=== PATIENT | female | born 1980 ===

== ENCOUNTER 2018-05-02 08:19 | Inpatient (IN) | payer OTHER ==
[2018-04-27 10:49] VITALS: BMI 31.1
[2018-05-02] MEDS ORDERED: Midazolam 2 MG/2 ML VIAL ONE (09:01)
[2018-05-02] MEDS ORDERED: Propofol 10 mg/ml Inj (20 ML) ONE (09:01)
[2018-05-02] MEDS ORDERED: ceFOXitin IV 1 gm/100 ml in NS 1 GM/100 ML BAG ONE (10:38)
[2018-05-02] MEDS: Bupivacaine 0.25% 20 ML INJ IJ ONE ×2 (11:00→13:12)
[2018-05-02] MEDS ORDERED: Methylene Blue 10 mg/mL(10ml) IV ONE (13:02)
--- NOTE | 2018-05-02 13:22 | PCM.SURG1 ---
Surgeon's Initial Post Op Note - Surgeon's Notes Surgeon: Dr. Pedraza Mobile Nurse: Dr. Moffett Type of Anesthesia: General Endo Anesthesia Administered By: Dr. Gonzales Pre-Operative Diagnosis: 37 yo with Fibroid uterus, menorrhagia, Irregular menstrual cycle , chronic pelvic pain Operative Findings: AV uterus 18-20 wks gestation , multiple adhesions, Endometriosis , multiple fibroids , MULTIPLE ENDOMETRIOSIS LESIONS ON THE BOWELS Post-Operative Diagnosis: Same as above Operation Performed: Attempted Laparoscopy Hysterectomy, Laparotomy Supracervic al hysterectomy , RSO, Left Salpingectomy , Cystoscopy Specimen/Specimens Removed: Uterus, Right tube and ovary, Left Tube Estimated Blood Loss: EBL {In ML}: 400 Blood Products Given: N/A Drains Used: No Drains Post-Op Condition: Good Date of Surgery/Procedure: 05/02/18 Time of Surgery/Procedure: 13:23
[2018-05-02] MEDS ORDERED: Lactated Ringer's 1,000 ML IV SCH (13:30)
[2018-05-02] MEDS ORDERED: cefOXitin IV 2 gm in Dextrose 2 GM/50 ML BAG IVPB SCH (13:30)
[2018-05-02] MEDS: HYDROmorphone 0.5 mg/0.5 ml ISec IVP PRN ×4 (13:55→21:49)
[2018-05-02] MEDS: Oxycodone/Acetaminophen 5/325 mg Tab PO PRN (18:41)
[2018-05-02] MEDS: cefOXitin IV 2 gm in Dextrose 2 GM/50 ML BAG IVPB SCH (19:44)
[2018-05-03] MEDS: Oxycodone/Acetaminophen 5/325 mg Tab PO PRN ×4 (02:22→21:28)
[2018-05-03] MEDS: cefOXitin IV 2 gm in Dextrose 2 GM/50 ML BAG IVPB SCH ×2 (03:18→10:11)
[2018-05-03 09:12] LABS: MEAN CELL VOLUME 81.7 fL (81.0-99.0); MEAN CORPUSCULAR HEMOGLOBIN 27.5 pg (27.0-31.0); MEAN CORPUSCULAR HGB CONC 33.7 g/dL (33.0-37.0); RBC 3.99 Mil/uL (3.80-5.20); RED CELL DISTRIBUTION WIDTH 14.3 % (11.5-14.5); WHITE BLOOD COUNT 10.4 K/uL (4.8-10.8)
[2018-05-03 09:25] LABS: ALB/GLOB RATIO 1.6 (1.0-2.1); ALBUMIN 3.6 g/dL (3.5-5.0); AST/SGOT 27 U/L (14-36); BLOOD UREA NITROGEN 7 mg/dL (7-17); CALCIUM 8.4 mg/dl (8.6-10.4); GFR NON-AFRICAN AMERICAN > 60
[2018-05-03 09:27] LABS: ALT/SGPT < 6 U/L (9-52)
[2018-05-04] MEDS: Oxycodone/Acetaminophen 5/325 mg Tab PO PRN ×3 (02:58→14:36)
--- NOTE | 2018-05-04 18:21 | CP.PCM.PN ---
Subjective - Date & Time of Evaluation Date of Evaluation: 05/03/18 Time of Evaluation: 18:19 - Subjective Subjective: pain moderate control, not ambulating well yet, not passing gas, tolerating diet, voiding on her own Objective - Vital Signs/Intake and Output Vital Signs (last 24 hours): Temp Pulse Resp BP Pulse Ox 97.1 F L 93 H 18 98/65 L 97 05/04/18 16:00 05/04/18 16:00 05/04/18 16:00 05/04/18 16:00 05/04/18 16:00 Intake and Output: 05/04/18 05/04/18 06:59 18:59 Intake Total 850 Output Total 0 Balance 850 - Medications Medications: Current Medications Docusate Sodium (Colace) 100 mg PO BID [facility] Last Admin: 05/04/18 09:41 Dose: 100 mg Hydromorphone HCl (Dilaudid) 0.5 mg IVP Q10M PRN PRN Reason: Pain, moderate (4-7) Last Admin: 05/02/18 21:49 Dose: 0.5 mg Lactated Ringer's (Lactated Ringer's) 1,000 mls @ 125 mls/hr IV .Q8H [facility] Last Admin: 05/02/18 23:00 Dose: 125 mls/hr Ondansetron HCl (Zofran Inj) 4 mg IVP ONCE PRN PRN Reason: Nausea/Vomiting Oxycodone/Acetaminophen (Percocet 5/325 Mg Tab) 1 tab PO Q6 PRN PRN Reason: Pain, moderate (4-7) Stop: 05/05/18 13:25 Last Admin: 05/04/18 14:36 Dose: 1 tab Oxycodone/Acetaminophen (Percocet 5/325 Mg Tab) 2 tab PO Q6H PRN PRN Reason: Pain, severe (8-10) Stop: 05/06/18 20:45 Last Admin: 05/04/18 02:58 Dose: 2 tab Zolpidem Tartrate (Ambien) 5 mg PO HS PRN PRN Reason: Insomnia - Labs Labs: 05/03/18 09:05 05/03/18 09:05 - Constitutional Appears: Well, No Acute Distress - Head Exam Head Exam: NORMAL INSPECTION, NORMOCEPHALIC - Neck Exam Neck Exam: Full ROM - Respiratory Exam Respiratory Exam: NORMAL BREATHING PATTERN - Cardiovascular Exam Cardiovascular Exam: REGULAR RHYTHM - GI/Abdominal Exam GI & Abdominal Exam: Soft, Hypoactive Bowel Sounds Additional comments: appropriately tender, dressing intact and dry Assessment and Plan - Assessment and Plan (Free Text) Plan: POD#1 meeting postop milestones but still need better pain control ambulate more, need to progress in bowel movements H&H appropriate, labs wnl
--- NOTE | 2018-05-04 18:23 | CP.PCM.PN ---
Subjective - Date & Time of Evaluation Date of Evaluation: 05/04/18 Time of Evaluation: 18:21 - Subjective Subjective: doing better but still no bowel movement or passing gas, no n/v, tolerating diet, has ambulated Objective - Vital Signs/Intake and Output Vital Signs (last 24 hours): Temp Pulse Resp BP Pulse Ox 97.1 F L 93 H 18 98/65 L 97 05/04/18 16:00 05/04/18 16:00 05/04/18 16:00 05/04/18 16:00 05/04/18 16:00 Intake and Output: 05/04/18 05/04/18 06:59 18:59 Intake Total 850 Output Total 0 Balance 850 - Medications Medications: Current Medications Docusate Sodium (Colace) 100 mg PO BID [facility] Last Admin: 05/04/18 09:41 Dose: 100 mg Hydromorphone HCl (Dilaudid) 0.5 mg IVP Q10M PRN PRN Reason: Pain, moderate (4-7) Last Admin: 05/02/18 21:49 Dose: 0.5 mg Lactated Ringer's (Lactated Ringer's) 1,000 mls @ 125 mls/hr IV .Q8H [facility] Last Admin: 05/02/18 23:00 Dose: 125 mls/hr Ondansetron HCl (Zofran Inj) 4 mg IVP ONCE PRN PRN Reason: Nausea/Vomiting Oxycodone/Acetaminophen (Percocet 5/325 Mg Tab) 1 tab PO Q6 PRN PRN Reason: Pain, moderate (4-7) Stop: 05/05/18 13:25 Last Admin: 05/04/18 14:36 Dose: 1 tab Oxycodone/Acetaminophen (Percocet 5/325 Mg Tab) 2 tab PO Q6H PRN PRN Reason: Pain, severe (8-10) Stop: 05/06/18 20:45 Last Admin: 05/04/18 02:58 Dose: 2 tab Zolpidem Tartrate (Ambien) 5 mg PO HS PRN PRN Reason: Insomnia - Labs Labs: 05/03/18 09:05 05/03/18 09:05 - Constitutional Appears: No Acute Distress - Head Exam Head Exam: NORMAL INSPECTION, NORMOCEPHALIC - Neck Exam Neck Exam: Normal Inspection - Respiratory Exam Respiratory Exam: NORMAL BREATHING PATTERN - Cardiovascular Exam Cardiovascular Exam: REGULAR RHYTHM - GI/Abdominal Exam GI & Abdominal Exam: Soft, Normal Bowel Sounds Additional comments: appropraitely tender, incision c/d/i Assessment and Plan - Assessment and Plan (Free Text) Plan: POD#2 improved but still need bowel movement ambulate more continue to work on pain control
[2018-05-04] MEDS ORDERED: oxyCODONE 5 mg Immediate Release Tab PO PRN (18:26)
[2018-05-04] MEDS ORDERED: oxyCODONE 10 mg Immediate Release Tab PO PRN (18:27)
[2018-05-04] MEDS: Simethicone 80 mg Chewtab PO SCH (23:12)
[2018-05-05 00:44] VITALS: RESP 20
[2018-05-05] MEDS: Simethicone 80 mg Chewtab PO SCH ×2 (06:26→12:49)
[2018-05-05 08:22] VITALS: BP 102/69; PULSE 85; TEMP 97.9; O2SAT 97
[2018-05-05] MEDS ORDERED: Influenza Vaccine 60 mcg/0.5 mL SYR (4YR UP) IM ONE (09:04)
--- NOTE | 2018-05-14 10:39 | CP.PCM.DIS ---
Provider - Provider Date of Admission: 05/02/18 13:32 Attending physician: Nery Pedraza MD Time Spent in preparation of Discharge (in minutes): 30 Diagnosis - Discharge Diagnosis (1) History of hysterectomy for benign disease Status: Acute Hospital Course - Lab Results Lab Results: Most Recent Lab Values WBC 10.4 K/uL (4.8-10.8) 05/03/18 09:05 RBC 3.99 Mil/uL (3.80-5.20) 05/03/18 09:05 Hgb 11.0 g/dL (11.0-16.0) 05/03/18 09:05 Hct 32.6 % (34.0-47.0) L 05/03/18 09:05 MCV 81.7 fL (81.0-99.0) 05/03/18 09:05 MCH 27.5 pg (27.0-31.0) 05/03/18 09:05 MCHC 33.7 g/dL (33.0-37.0) 05/03/18 09:05 RDW 14.3 % (11.5-14.5) 05/03/18 09:05 Plt Count 167 K/uL (130-400) 05/03/18 09:05 MPV 10.0 fL (7.2-11.7) 05/03/18 09:05 Sodium 135 mmol/L (132-148) 05/03/18 09:05 Potassium 3.4 mmol/L (3.6-5.2) L 05/03/18 09:05 Chloride 99 mmol/L (98-107) 05/03/18 09:05 Carbon Dioxide 31 mmol/L (22-30) H 05/03/18 09:05 Anion Gap 9 (10-20) L 05/03/18 09:05 BUN 7 mg/dL (7-17) 05/03/18 09:05 Creatinine 0.6 mg/dL (0.7-1.2) L 05/03/18 09:05 Est GFR ( Amer) > 60 05/03/18 09:05 Est GFR (Non-Af Amer) > 60 05/03/18 09:05 Random Glucose 99 mg/dL (65-105) 05/03/18 09:05 Calcium 8.4 mg/dl (8.6-10.4) L 05/03/18 09:05 Total Bilirubin 0.8 mg/dL (0.2-1.3) 05/03/18 09:05 AST 27 U/L (14-36) 05/03/18 09:05 ALT < 6 U/L (9-52) L 05/03/18 09:05 Alkaline Phosphatase 69 U/L (38-126) 05/03/18 09:05 Total Protein 5.9 g/dL (6.3-8.3) L 05/03/18 09:05 Albumin 3.6 g/dL (3.5-5.0) 05/03/18 09:05 Globulin 2.3 gm/dL (2.2-3.9) 05/03/18 09:05 Albumin/Globulin Ratio 1.6 (1.0-2.1) 05/03/18 09:05 Blood Type O POSITIVE 05/02/18 09:45 Antibody Screen Negative 05/02/18 09:45 Discharge Exam - Head Exam Head Exam: ATRAUMATIC, NORMAL INSPECTION, NORMOCEPHALIC - Eye Exam Eye Exam: EOMI, Normal appearance, PERRL Pupil Exam: NORMAL ACCOMODATION, PERRL - GI/Abdominal Exam GI & Abdominal Exam: Normal Bowel Sounds - Rectal Exam Rectal Exam: NORMAL INSPECTION - Exam Exam: Circumcision, NORMAL INSPECTION External exam: NORMAL EXTERNAL EXAM Speculum exam: NORMAL SPECULUM EXAM Bimanual exam: NORMAL BIMANUAL EXAM - Neurological Exam Neurological exam: Alert, CN II-XII Intact, Normal Gait, Oriented x3, Reflexes Normal - Psychiatric Exam Psychiatric exam: Normal Affect, Normal Mood - Skin Skin Exam: Dry, Intact, Normal Color, Warm Discharge Plan - Discharge Medications Prescriptions: Docusate [Colace] 100 mg PO BID #60 cap Ibuprofen [Motrin Tab] 600 mg PO Q6H PRN #60 tab PRN Reason: Pain, Moderate (4-7) oxyCODONE [oxyCODONE Immediate Release Tab] 5 mg PO Q6H PRN #20 tab PRN Reason: Pain, Severe (8-10) - Follow Up Plan Condition: GOOD Disposition: HOME/ ROUTINE Instructions: Hysterectomy, Abdominal or Laparoscopic Surgery, Fallopian Tube Removal (DC) Additional Instructions: drink plenty of fluids, eat fruits and vegetables, take medications as ordered, notify mdArjun for severe pain or fever or signs of wound infection,call for follow- up visit, good handwashing, Referrals: Nery Pedraza MD [Staff Provider] -
--- NOTE | 2018-05-14 19:23 | OP ---
PROCEDURE DATE: 05/02/2018 PREOPERATIVE DIAGNOSES: A 37-year-old female with fibroid uterus, menorrhagia, irregular menstrual period as well as chronic pelvic pain. POSTOPERATIVE DIAGNOSES: A 37-year-old with fibroid uterus, menorrhagia, irregular menstrual period, chronic pelvic pain, multiple adhesions as well as endometriosis. PROCEDURES: Attempted laparoscopic hysterectomy proceeded to laparotomy due to multiple adhesions, supracervical hysterectomy, right salpingo-oophorectomy, left salpingectomy and cystoscopy. OPERATIVE FINDINGS: Anteverted uterus with multiple adhesions noted. The uterus was approximately 20 weeks' gestation. There was evidence of endometriosis and multiple leiomyomas. INTRAVENOUS FLUID: 1500 mL. ESTIMATED BLOOD LOSS: Approximately 400 mL. URINE OUTPUT: 400 mL. SPECIMEN: Uterus, right tube and ovary as well as the left tube. DESCRIPTION OF PROCEDURE: The patient was informed of the risk factors, benefits and alternatives of the procedure. Risks factors included infection, bleeding, damage to surrounding organs and tissues, complication from anesthesia and possible . She was also well informed that chronic pelvic pain can reoccur due to adhesions. She was also informed that there are risk factors to the surrounding organs such as the small bowel and large bowel, the need for blood transfusion and possible , risk factors explained but not limited to. Prior to going to the operating room, all questions were answered, informed consent was obtained. She understood all the risk factors and she understood also that once she had this hysterectomy, she was not able to become and also she was well informed that the instance of reoccurrence of scar tissue is possible. The patient was then taken to the operating room where general anesthesia was obtained without any difficulty. The patient was examined under anesthesia and found to have a anteverted uterus approximately at 20 weeks' gestation. She also had multiple prior surgical procedures as well as an abdominoplasty. She was placed into a supine position, prepped and draped in the normal sterile fashion. A weighted speculum was placed into the vagina. The anterior lip of the cervix was grasped. A VCare device size medium was then advanced to the uterus to provide a mean to manipulate the uterus. The speculum was removed from the vagina and attention was then turned to the patient's abdomen where a 5 mm skin incision was made in the umbilical fold, but unsuccessful due to multiple adhesions. It was attempted via [place]'s point again. It was noted that she was full of adhesions. In that particular point, we evaluated. It was then decided to proceed to an open laparotomy. So, the skin was then closed with a 3-0 Monocryl. So, in that particular instance, a Pfannenstiel incision was made approximal 2 cm above the symphysis pubis and extended sharply to the rectus fascia. The fascia was then incised bilaterally with a curved [place] scissors and the muscles of the anterior abdominal wall were in the midline by sharp and blunt dissection. The peritoneum was then grasped with 2 pickups, elevated and entered sharply with the scalpel. The pelvis was then examined with the above-mentioned findings. The [employer] retractor was placed into the incision. The bowels were packed away. Multiple lysis of adhesions were then performed. The round ligament on both sides were clamped, transected and suture ligated with a 0 Vicryl. The anterior leaf of the broad ligament was incised along the bladder reflection to the midline from both sides. The bladder was then gently dissected off the lower uterine segment. The infundibular ligament on the right side was then doubly clamped, transected and suture ligated with 0 Vicryl. Hemostasis was visualized and then on the left side, the left ovarian ligament was clamped, transected and suture ligated. A [place] was then utilized and suture ligated with 0 Vicryl in order to remove the left tube. Again, hemostasis was assured. The uterine arteries were then skeletonized bilaterally, clamped with Champ clamps, transected and suture ligated with 0 Vicryl. Again, hemostasis was assured. The uterus was amputated with cautery. The cervical stump was then closed with [id number] sutures of 0 Vicryl, were transected to the ipsilateral corner which is the transected part. The remainder of the cervical stump was closed series of interrupted 0 Vicryl [id number] sutures. Hemostasis was assured. The pelvis was then irrigated copiously with warm normal saline. All laparotomy sponges and instruments were removed from the abdomen and the fascia was then closed with 0 Vicryl. Hemostasis was assured. The skin was then closed with 3-0 Monocryl. Sponge, lap and needle counts were correct x2. The patient was then taken to the recovery room in stable condition and instructed to follow up in the office in 2 weeks. Nery Pedraza MD [facility] # [id number]
== END 2018-05-05 15:30 | disposition home or self-care (01) | DRG 743 ==
LOC: C.SDS 08:19 → C.4M 13:32
PROVIDERS: ADMIT Obstetrics & Gynecology; ATTEND Obstetrics & Gynecology
PROC: 0UT00ZZ Resection of Right Ovary, Open Approach (ICD-10-PCS; 2018-05-02)
PROC: 0UT70ZZ Resection of Bilateral Fallopian Tubes, Open Approach (ICD-10-PCS; 2018-05-02)
PROC: 0TJB8ZZ Inspection of Bladder, Via Natural or Artificial Opening Endoscopic (ICD-10-PCS; 2018-05-02)
PROC: 0UN40ZZ Release Uterine Supporting Structure, Open Approach (ICD-10-PCS; 2018-05-02)
PROC: 0UT90ZL Resection of Uterus, Supracervical, Open Approach (ICD-10-PCS; principal; 2018-05-02 09:00)
PROC: 0UJD4ZZ Inspection of Uterus and Cervix, Percutaneous Endoscopic Approach (ICD-10-PCS; 2018-05-02 09:00)
DX: D25.2 Subserosal leiomyoma of uterus (principal); N80.0 Endometriosis of uterus; N83.11 Corpus luteum cyst of right ovary; N83.01 Follicular cyst of right ovary; N73.6 Female pelvic peritoneal adhesions (postinfective); N92.0 Excessive and frequent menstruation with regular cycle; G89.29 Other chronic pain; R10.2 Pelvic and perineal pain